=== PATIENT | male | born 1995 | race African-American/Black ===

== ENCOUNTER 2018-08-10 14:59 | Emergency (ER) | payer OTHER ==
[2018-08-10 15:14] VITALS: BP 128/69
--- NOTE | 2018-08-10 16:13 | UC ---
Respiratory Complaint HPI - HPI Summary HPI Summary: PATIENT HAS BEEN COUGHING FOR MONTHS. HE HAS INTERMITTENT PLEURITIC PAIN AND OCCASIONALLY FEELS BREATHLESS. VOICE IS HOARSE. NO FEVER, NAUSEA/VOMITING. STATES HIS SYMPTOMS WORSEN WHEN HE DRINKS ANY ALCOHOL. IF HE DOES NOT DRINK FOR SEVERAL WEEKS HIS SYMPTOMS IMPROVE. HE DENIES ANY HISTORY OF SEASONAL/ ENVIRONMENTAL ALLERGIES. - History of Current Complaint Chief Complaint: UCRespiratory Stated Complaint: RESP COMPLAINT Time Seen by Provider: 08/10/18 15:07 Hx Obtained From: Patient Onset/Duration: Gradual Onset, Lasting Weeks, Still Present Severity Initially: Moderate Severity Currently: Moderate Pain Intensity: 0 Pain Scale Used: 0-10 Numeric Character: Cough: Nonproductive Aggravating Factors: Other - ALCOHOL Associated Signs And Symptoms: Positive: Pleuritic Chest Pain, Nasal Congestion , Hoarseness - Allergies/Home Medications Allergies/Adverse Reactions: Allergies Allergy/AdvReac Type Severity Reaction Status Date / Time No Known Allergies Allergy Verified 01/15/17 13:49 PMH/Surg Hx/FS Hx/Imm Hx Previously Healthy: Yes - Surgical History Surgical History: None - Family History Known Family History: Positive: Non-Contributory - Social History Alcohol Use: Weekly Alcohol Amount: fri and sat Substance Use Type: None Smoking Status (MU): Never Smoked Tobacco Review of Systems All Other Systems Reviewed And Are Negative: Yes Constitutional: Positive: Fatigue ENT: Positive: Nasal Discharge Respiratory: Positive: Cough, Other - PLEURITIC PAIN Cardiovascular: Positive: Negative Gastrointestinal: Positive: Negative Physical Exam Triage Information Reviewed: Yes Appearance: Well-Appearing, No Pain Distress, Well-Nourished Vital Signs: Initial Vital Signs Temp 99 F 08/10/18 15:07 Pulse 59 08/10/18 15:07 Resp 18 08/10/18 15:07 BP 128/69 08/10/18 15:07 Pulse Ox 100 08/10/18 15:07 Vital Signs Reviewed: Yes Eyes: Positive: Conjunctiva Clear ENT: Positive: Hearing grossly normal, Pharynx normal, TMs normal Neck: Positive: Supple, Nontender, No Lymphadenopathy Respiratory: Positive: Lungs clear, Normal breath sounds, No respiratory distress, No accessory muscle use, Other: - HACKING COUGH Cardiovascular Exam: Normal Abdomen Description: Positive: Soft Musculoskeletal: Positive: No Edema Neurological: Positive: Alert Psychological: Positive: Age Appropriate Behavior Skin: Negative: Rashes Respiratory Course/Dx - Course Course Of Treatment: PATIENT WITH LONG-STANDING SYMPTOMS WHICH SEEM TO BE TRIGGERED BY ALCOHOL CONSUMPTION. I HAVE ADVISED HE ABSTAIN FROM ALCOHOL AND WILL COVER FOR INFECTIOUS COMPONENT WITH ANTIBIOTICS AND ALLERGIC/INFLAMMATORY COMPONENT WITH PREDNISONE AND AN ANTIHISTAMINE. WILL ALSO TRY NASAL FLONASE TO HELP WITH HIS CONGESTION. ADVISED TO FOLLOW-UP WITH A PCP AND ALSO CONSIDER ENT EVALUATION IF THE SYMPTOMS DO NOT IMPROVE. - Differential Dx/Diagnosis Provider Diagnosis: Acute bronchitis, Laryngitis Discharge - Sign-Out/Discharge Documenting (check all that apply): Patient Departure All imaging exams completed and their final reports reviewed: No Studies - Discharge Plan Condition: Stable Disposition: HOME Prescriptions: Azithromycin 500 mg PO DAILY #5 tab Fluticasone NASAL SPRAY 50MCG* [Flonase NASAL SPRAY 50MCG*] 2 spray BOTH NARES DAILY #1 btl predniSONE TAB* [Deltasone TAB*] 50 mg PO DAILY #5 tab Patient Education Materials: Laryngitis (ED), Acute Bronchitis (ED) Referrals: [facility] [Outside] - If Needed Additional Instructions: YOUR SYMPTOMS MAY BE VIRALLY MEDIATED BUT GIVEN THE LENGTH OF TIME YOU HAVE BEEN ILL WE WILL COVER YOU WITH ANTIBIOTICS. IF YOU START THE MEDICINE BE SURE TO TAKE IT FOR THE FULL COURSE. REST, HYDRATE, OTC MEDS NEEDED. WILL ALSO TREAT WITH PREDNISONE TO HELP WITH AIRWAY INFLAMMATION. TAKE AN OTC ANTIHISTAMINE DAILY SUCH CLARITIN OR ZYRTEC TO COVER FOR ANY ALLERGIC COMPONENT. HAVE ALSO PRESCRIBED FLONASE FOR YOU TO USE NIGHTLY BEFORE BED. AVOID ALCOHOL FOR THE NEXT FEW WEEKS TO SEE HOW YOUR SYMPTOMS PROGRESS WITH THIS TREATMENT. SEEK FOLLOW-UP IF YOU ARE NOT IMPROVING. [facility] [place] [address] [facility] [phone] - Billing Disposition and Condition Condition: STABLE Disposition: Home
== END 2018-08-10 15:45 | disposition home or self-care (01) ==
LOC: UCEAST 14:59
DX: J20.9 Acute bronchitis, unspecified (principal); J04.0 Acute laryngitis
CPT/HCPCS: 99212; G0463